=== PATIENT | female | born 1950 | race American Indian/Alaskan Native ===

== ENCOUNTER 2017-04-14 13:09 | Outpatient (CLI) | payer MEDICARE ==
--- NOTE | 2017-04-14 16:36 | Ultrasound Report ---
ULTRASOUND GUIDED NEEDLE CORE BIOPSY LEFT BREAST WITH CLIP PLACEMENT: 04/14/17 CLINICAL: A 4 mm shadowing lesion at 2 o'clock. COMPARISON :Recent mammograms and ultrasound from [facility]. FINDINGS: The procedure was explained to the patient and informed consent was obtained. Ultrasound demonstrated the previously described irregular solid hypoechoic shadowing mass at 2 o'clock 12 cm from the nipple. It was described to be at 9 cm from the nipple on the previous ultrasound. I marked the breast with a felt tip marker and a time out was called. The skin was prepped with Betadine and anesthetized with 1% lidocaine. Needle core biopsy was performed through a tiny dermatotomy using ultrasound guidance, 2% lidocaine with epinephrine for deep anesthesia and a 14-gauge Achieve biopsy device. Imaging demonstrated satisfactory sampling. Multiple cores were obtained and placed in formalin. A clip was deployed within the lesion The patient tolerated the procedure well and there were no apparent complications. Hemostasis was achieved with minimal pressure and a sterile dressing was applied. A two view mammogram demonstrated clip placement to be concordant with the previously described mammographic density. She left the department in good condition and was given instructions for wound care and followup. IMPRESSION: Uncomplicated ultrasound guided needle core biopsy with clip placement left breast.
== END 2017-04-14 13:10 | disposition home or self-care (01) ==
LOC: SPVWC 13:09
PROVIDERS: ATTEND Specialist
DX: N63 Unspecified lump in breast (principal)
CPT/HCPCS: 19083; A4648; G0206; 88305

== ENCOUNTER 2017-05-12 12:10 | Outpatient (CLI) | payer MEDICARE ==
--- NOTE | 2017-05-13 11:10 | Magnetic Resonance Report ---
BILATERAL BREAST MRI WITHOUT AND WITH CONTRAST: 05/12/17 12:10:00 CLINICAL: Newly diagnosed left breast cancer. 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 Negative for invasive carcinoma. Nuclear grade 1. COMPARISON:04/14/17 left mammogram. Previous outside mammograms are not available. TECHNIQUE: Axial 1.0-mm T1 without, axial high resolution 2.0-mm T2 and axial 1.0-mm dynamic Vibrant high-resolution postcontrast T1 fat saturation sequences on a 1.5 Qi magnet. The examination was performed with an 8 channel dedicated Sentinelle breast coil. Post processing with CAD and subtraction was performed on an [employer] workstation. 27.0 cc of Multihance was injected without incident for the contrast portion of the exam. Consent was obtained prior to the administration of the contrast. FINDINGS: Right: Minimal background parenchymal enhancement. No mass or suspicious enhancement of the right breast. No suspicious lymph nodes. Left: Minimal background parenchymal enhancement. The known cancer is an irregular enhancing mass in the upper outer quadrant 11 cm from the nipple measuring 10.3 x 6.9 x 2.9 mm. It demonstrates 177% peak enhancement and heterogeneous enhancement with mixed kinetics and 85% type I persistent waveform. No other mass or suspicious enhancement. No suspicious lymph nodes. IMPRESSION: Known left breast cancer and no additional suspicious lesion of either breast. No suspicious lymph nodes. RIGHT BI-RADS 1 -- Negative LEFT BI-RADS 6 -- Known Cancer
== END 2017-05-12 12:11 | disposition home or self-care (01) ==
LOC: SPVIMAG 12:10
PROVIDERS: ATTEND Specialist
DX: C50.412 Malignant neoplasm of upper-outer quadrant of left female breast (principal); Z80.3 Family history of malignant neoplasm of breast
CPT/HCPCS: 0159T; A9577; C8908; 77059

== ENCOUNTER 2017-06-16 06:29 | Day surgery (SDC) | payer MEDICARE ==
[~2017-06-16 06:29] MED LIST: ANCEF/STERILE WATER 2 GM/20 ML IV NR
[2017-06-16] MEDS ORDERED: XYLOCAINE 1% 20 mL ONE ×2 (07:53→10:19)
[2017-06-16] MEDS ORDERED: DIPRIVAN 10 MG/ML IV ONE (09:43)
[2017-06-16] MEDS ORDERED: XYLOCAINE MPF 2% ONE (09:43)
[2017-06-16] MEDS ORDERED: ZOFRAN ONE ×2 (09:43→16:29)
[2017-06-16] MEDS ORDERED: DILAUDID ONE (09:43)
[2017-06-16] MEDS ORDERED: DECADRON ONE (09:43)
[2017-06-16] MEDS ORDERED: ZOFRAN IV PRN (09:48)
--- NOTE | 2017-06-16 09:48 | Anesthesia Day of Surgery ---
Anesthesia Day of Surgery - Day of Surgery Patient Examined: Yes Patient H&P Reviewed: Yes Patient is NPO: Yes
--- NOTE | 2017-06-16 09:48 | Anesthesia Consultation ---
Anesthesia Consult and Med Hx Date of service: 06/16/17 - Airway Anesthetic Teeth Evaluation: Crowns (upper incisors), Partials (upper) ROM Head & Neck: Adequate Mental/Hyoid Distance: Adequate Mallampati Class: Class III Intubation Access Assessment: Probably Good - Pulmonary Exam CTA: Yes - Cardiac Exam Cardiac Exam: RRR - Pre-Operative Health Status ASA Pre-Surgery Classification: ASA3 Proposed Anesthetic Plan: General - Pulmonary Hx Smoking: No Hx Sleep Apnea: No (MAUREEN PRE SCREEN HIGH RISK) - Cardiovascular System Hx Hypertension: Yes (X 45 YRS) - Central Nervous System Hx Back Pain: Yes - Endocrine Hx Non-Insulin Dependent Diabetes: Yes
[2017-06-16] MEDS: LACTATED RINGERS 1,000 ML IV SCH ×2 (10:05→16:34)
--- NOTE | 2017-06-16 10:08 | Mammography Report ---
Left breast needle localization procedure. History: Breast cancer Procedure: The patient's prior mammogram was reviewed. The patient's skin surface was prepped using sterile technique. Local anesthetic was injected in the skin. Using mammographic guidance, a 7.5 cm Hernandez needle was advanced into the area of interest at the site of the biopsy clip. Satisfactory localization was accomplished and a hookwire was left in place. The patient tolerated the procedure well clinically and was sent to the OR in satisfactory condition.
[2017-06-16] MEDS ORDERED: MARCAINE 0.25% INFILTRATI ONE ×2 (10:19→11:27)
[2017-06-16] MEDS ORDERED: ePHEDrine SULFATE ONE (11:18)
[2017-06-16] MEDS ORDERED: XYLOCAINE 1% 20 mL INFILTRATI ONE (11:27)
[2017-06-16] MEDS ORDERED: WATER FOR IRRIG STERILE IR ONE (11:27)
[2017-06-16] MEDS ORDERED: SUBLIMAZE ONE (12:54)
[2017-06-16] MEDS: DILAUDID IV PRN ×2 (13:15→13:25)
--- NOTE | 2017-06-16 13:15 | Short Stay Summary ---
Short Stay Documentation Date of service: 06/16/17 - History H&P: obtained from office - Allergies and Medications Current Medications: Allergies No Known Allergies Allergy (Verified 06/14/17 16:38) Home Medications Medication Instructions Recorded Confirmed Last Taken Type Metoprolol [Lopressor] 100 mg PO DAILY 06/14/17 06/14/17 06/16/17 03:45 History Omeprazole 40 mg PO DAILY 06/14/17 06/14/17 06/16/17 03:45 History Potassium Citrate [Potassium 10 meq PO DAILY 06/14/17 06/14/17 06/16/17 03:45 History Citrate ER] Spironolactone [Aldactone] 50 mg PO QDAY 06/14/17 06/14/17 06/16/17 03:45 History Valsartan/Hydrochlorothiazide 1 each PO DAILY 06/14/17 06/14/17 06/16/17 03:45 History [Valsartan-Hctz 320-25 mg Tab] amLODIPine [Norvasc] 10 mg PO DAILY 06/14/17 06/14/17 06/16/17 03:45 History HYDROcodone/APAP 5-325 [[place] 1 each PO Q6HR PRN #30 tablet 06/16/17 Unknown Rx 5/325] Active Medications Cefazolin Sodium (Ancef/Sterile Water 2 Gm/20 Ml) 2 gm IV PREOP NR Stop: 06/16/17 23:00 Hydromorphone HCl (Dilaudid) 0.5 mg IV Q10MIN PRN PRN Reason: Pain , Severe (7-10) Stop: 06/16/17 15:00 Lactated Ringer's (Lactated Ringers) 1,000 mls @ 100 mls/hr IV DIRECT ROMI Last Admin: 06/16/17 10:05 Dose: 100 mls/hr - Brief post op/procedure progress note Date of procedure: 06/16/17 Pre-op diagnosis: Left breast cancer of the upper outer quadrant Post-op diagnosis: same Procedure: Left needle localization partial mastectomy and SLNB Anesthesia: GETA Findings: Radigraph specimen with clip and wire present; 2 SLNs identified Surgeon: TROY GUERRIER Estimated blood loss: minimal Pathology: list (left partial mastectomy and SLNs) Specimen disposition: to lab - Disposition Disposition: TO HOME OR SELFCARE Short Stay Discharge Plan Activity: other (no heavy lifting) Diet: diabetic Wound: other (keep incision clean and dry and may shower in 24 hours; no baths, pools or lakes; do not rub or scrub incision) Follow up with: ANGELIC SORENSON MD [Primary Care Provider] - 7 Days TROY GUERRIER MD [Staff Physician] - 7 Days Prescriptions: HYDROcodone/APAP 5-325 [[place] 5/325] 1 each PO Q6HR PRN #30 tablet PRN Reason: Pain
--- NOTE | 2017-06-16 13:23 | Operative Report ---
Operative Report Operative Report: Date of surgery: 06/16/2017 Preoperative diagnosis: Left breast cancer of the upper outer quadrant Postoperative diagnosis: Same Procedure: Left needle localization partial mastectomy and sentinel lymph node biopsy Surgeon: Rosa Willett M.D. Anesthesia: Gen. Findings: Radiograph specimen with wire and clip present, 2 sentinel lymph nodes identified Drains: None Complications: None Estimated blood loss: Minimal Disposition: PACU in good condition Indications for operative procedure: This is a 67-year-old lady with recently diagnosed stage 0 left breast cancer of the upper outer quadrant. Recommendations were to proceed with a partial mastectomy. Additional recommendation to proceed with sentinel lymph node staging given MRI with findings of an irregular enhancing mass of 10 mm and concerns for invasive cancer were discussed and recommended proceeding with sentinel lymph node staging and patient agreed. Patient wished to proceed with the above procedure. Procedure in detail: Radiology placed wire at area of known breast cancer location at the 2 o'clock position 10-12 cm from the nipple. The patient was then taken to the operating room and was laid supine. Gen. anesthesia was administered. The left breast and axilla were prepped and draped in the normal sterile operative fashion. The nipple was injected with radial isotope. Timeout was performed. First began with the sentinel lymph node biopsy. The gamma probe was inserted into the axilla with the area of sentinel lymph node identified. A skin incision was made with a 15 blade knife with dissection taken down to the subcutaneous tissues. Axillary fascia was opened. 2 sentinel lymph nodes were identified using the gamma probe and dissected free and sent to pathology for permanent processing. Additional counts in the axilla were less than 10% of the highest count. Hemostasis was noted. Axillary cavity was irrigated and suctioned. Axillary fascia was approximated and closed using interrupted 3-0 Vicryl and skin brought together and closed using a running 4-0 Monocryl. Attention was then taken towards the left breast. The wire was identified. Lateral skin incision was made with 15 blade knife with dissection taken down to the subcutaneous tissues. First began raising of the lateral flap followed by raising of the medial flap, superior flap and then the inferior flap. Partial mastectomy was appropriately removed with dissection taken down to the pectoralis muscle. Specimen was appropriately marked and sent to radiology and pathology. Radiograph specimen with clip and wire present. Breast cavity was noted for hemostasis. Subcutaneous tissues were approximated and closed using interrupted 3-0 Vicryl and skin brought together using a 4-0 Monocryl and skin affix. Both surgical incisions were anesthesized with 1% lidocaine mixed with quarter percent marcaine. She tolerated surgery very well and was awakened from anesthesia and then transferred to PACU in good condition.
[2017-06-16 14:05] VITALS: BP 118/75
--- NOTE | 2017-06-16 14:27 | Post Anesthesia Evaluation ---
- Post Anesthesia Evaluation Patient Participated: Yes Airway Patent: Yes Stable Respiratory Function: Yes Nausea/Vomiting: No Temp > 96.8F: Yes Pain Manageable: Yes Adequeate Hydration: Yes Anesthesia Complications: No
--- NOTE | 2017-06-16 14:34 | Mammography Report ---
Specimen radiograph. Findings: A single specimen radiograph confirms the presence of the biopsy clip within the specimen.
[2017-06-16] MEDS ORDERED: ZOFRAN IV ONE (17:00)
== END 2017-06-16 17:03 | disposition home or self-care (01) ==
LOC: OR 06:29
PROVIDERS: ATTEND Surgery
DX: C50.412 Malignant neoplasm of upper-outer quadrant of left female breast (principal); I10 Essential (primary) hypertension; E11.9 Type 2 diabetes mellitus without complications; K21.9 Gastro-esophageal reflux disease without esophagitis; Z90.710 Acquired absence of both cervix and uterus; Z79.899 Other long term (current) drug therapy; Z80.3 Family history of malignant neoplasm of breast; Z80.41 Family history of malignant neoplasm of ovary
CPT/HCPCS: 19281; 19301; 36415; 38525; 76098; 78800; 82962; 84132; 88307; 88333; 88342; A9541; J0690; J1100; J1170; J2405; J2704; J3010; J7120

== ENCOUNTER 2018-06-30 11:37 | Outpatient (CLI) | payer MEDICARE ==
--- NOTE | 2018-07-01 11:23 | Mammography Report ---
BONE DEXA:06/30/18 11:37:00 CLINICAL: Postmenopausal and history of left breast cancer. On aromatase inhibitor. No comparison. TECHNIQUE: Two site bone DEXA performed on an Hologic scanner. FINDINGS: The average BMD of the lumbar spine L1-L4 is 1.097g/cm squared with a T-score of -0.5 and a Z-score of +1.6. The average BMD of the left hip is 1.241g/cm squared with a T-score of +1.3 and a Z-score of +2.4. IMPRESSION: WHO classification: Normal with average fracture risk based on both spine and left measurements. RECOMMENDATION: Clinical correlation and routine screening. DEFINITIONS: BMD = Bone Mineral Density T-score = BMD related to mean peak bone mass of young adult (mean expressed in Standard Deviation) Z-score = Age matched BMD expressed in SD World Health Organization (WHO) Diagnostic Criteria Normal T-score > -1 SD Osteopenia T-score between -1 and -2.4 SD Osteoporosis T-score -2.5 SD or below NOTE: BMD is not the only risk factor for fracture. One should also consider factors such as the patient's age, risk of falling, previous osteoporotic fracture, family history of osteoporotic fractures, current smoker, and low body weight. Z-scores are not calculated if >80 years of age.
== END 2018-06-30 11:38 | disposition home or self-care (01) ==
LOC: SPVWC 11:37
PROVIDERS: ATTEND Internal Medicine Hematology & Oncology
DX: Z13.820 Encounter for screening for osteoporosis (principal); I10 Essential (primary) hypertension; K21.9 Gastro-esophageal reflux disease without esophagitis; E11.9 Type 2 diabetes mellitus without complications; F17.210 Nicotine dependence, cigarettes, uncomplicated; Z78.0 Asymptomatic menopausal state; Z90.710 Acquired absence of both cervix and uterus
CPT/HCPCS: 77080

== ENCOUNTER 2018-10-19 10:04 | Outpatient (CLI) | payer MEDICARE ==
--- NOTE | 2018-10-20 16:31 | Magnetic Resonance Report ---
"BILATERAL BREAST MRI WITHOUT AND WITH CONTRAST: 10/19/18 10:04:00 CLINICAL: Breast cancer survivor status post left partial mastectomy 06/16/17 with subsequent radiation therapy. COMPARISON:10/10/18 and 04/11/18 mammograms. TECHNIQUE: Axial 1.0-mm T1 without, axial high resolution 2.0-mm T2 and axial 1.0-mm dynamic Vibrant high-resolution postcontrast T1 fat saturation sequences on a 1.5 Qi magnet. The examination was performed with an 8 channel dedicated Sentinelle breast coil. Post processing with CAD and subtraction was performed on an [employer] workstation. 19.0 cc of Multihance was injected without evidence for the contrast portion of the exam. Consent was obtained prior to the administration of the contrast. FINDINGS: Right: Minimal background parenchymal enhancement. No mass or suspicious enhancement. No suspicious lymph nodes. Left: The left breast is smaller than the right. Minimal background parenchymal enhancement. Postsurgical scar in the upper outer quadrant approximately 16 cm from the nipple. A 1 cm seroma at the center of the scar. No mass or suspicious enhancement. No suspicious lymph nodes. IMPRESSION: Benign postsurgical changes of the left breast and negative right breast. BI-RADS 2 - - Benign"
== END 2018-10-19 10:05 | disposition home or self-care (01) ==
LOC: SPVIMAG 10:04
PROVIDERS: ATTEND Surgery
DX: R92.8 Other abnormal and inconclusive findings on diagnostic imaging of breast (principal); I10 Essential (primary) hypertension; K21.9 Gastro-esophageal reflux disease without esophagitis; E11.9 Type 2 diabetes mellitus without complications; Z90.710 Acquired absence of both cervix and uterus; Z85.3 Personal history of malignant neoplasm of breast
CPT/HCPCS: A9577; C8908; 77059

== ENCOUNTER 2019-10-30 10:12 | Outpatient (CLI) | payer OTHER ==
--- NOTE | 2019-11-01 09:22 | Magnetic Resonance Report ---
BILATERAL BREAST MR WITHOUT AND WITH GADOLINIUM INDICATION: History of left breast cancer status post left partial mastectomy 06/16/2017. She also de la cruz d subsequent radiation therapy. COMPARISONS: 10/19/2018 TECHNIQUE: Axial 1.0 mm T1 without, axial high-resolution 2.0 mm T2 and axial 1.0 mm dynamic vibrant high-resolution postcontrast T1 fat saturation sequences on a 1.5 Qi magnet. The examination was p erformed with an 8-channel dedicated Sentinelle breast coil. Post-processing with CAD and subtraction was performed on an [employer] workstation. 19.0 cc of MultiHance was injected without incident for the c ontrast portion of the exam. Consent was obtained prior to the administration of the contrast. FINDINGS: RIGHT BREAST: Minimal background parenchymal enhancement. No mass or suspicious enhancement. No suspi cious right axillary or right internal mammary lymph nodes. LEFT BREAST: The left breast is smaller than the right. Minimal background parenchymal enhancement. B enign nonenhancing postsurgical scar in the upper outer quadrant. A previously described seroma assoc iated with the scar has resolved. No suspicious left axillary or left internal mammary lymph nodes. IMPRESSION: 1. Benign left postsurgical scar and no evidence of disease recurrence in the left breast. 2. Negative right breast. 3. No suspicious lymph nodes. BI-RADS Category 2: Benign Signer Name: Vance King MD Signed: 11/01/2019 9:18 AM Workstation Name: [id number]
== END 2019-10-30 10:13 | disposition home or self-care (01) ==
LOC: SPVIMAG 10:12
PROVIDERS: ATTEND Surgery
DX: R92.8 Other abnormal and inconclusive findings on diagnostic imaging of breast (principal); I10 Essential (primary) hypertension; E11.9 Type 2 diabetes mellitus without complications; Z85.3 Personal history of malignant neoplasm of breast; Z98.890 Other specified postprocedural states; Z90.710 Acquired absence of both cervix and uterus
CPT/HCPCS: A9577; C8908; 77049